=== PATIENT | male | born 2000 | race Caucasian/White ===

== ENCOUNTER 2019-10-29 07:18 | Emergency (ER) | payer BC, OTHER ==
[~2019-10-29] VITALS: Ht 188 cm; Wt 72.7 kg
[2019-10-29 07:27] VITALS: BP 112/61
[2019-10-29] MEDS ORDERED: penicillin V potassium 500mg tablet PO ONE (09:20)
[2019-10-29] MEDS ORDERED: PENI500T2 PO (09:21)
== END 2019-10-29 09:40 | disposition home or self-care (01) ==
LOC: ER 07:19
DX: J02.0 Streptococcal pharyngitis (principal); B95.0 Streptococcus, group A, as the cause of diseases classified elsewhere; M79.18 Myalgia, other site; G43.909 Migraine, unspecified, not intractable, without status migrainosus; Z79.899 Other long term (current) drug therapy
CPT/HCPCS: 87880; 99283

== ENCOUNTER 2020-12-27 15:03 | Emergency (ER) | payer BC, OTHER ==
[~2020-12-27] VITALS: Ht 190.5 cm; Wt 75.0 kg
[2020-12-27 15:17] VITALS: BP 123/59
== END 2020-12-27 15:55 | disposition home or self-care (01) ==
LOC: ER 15:04
DX: S93.401A Sprain of unspecified ligament of right ankle, initial encounter (principal); M79.671 Pain in right foot; M25.471 Effusion, right ankle; G43.909 Migraine, unspecified, not intractable, without status migrainosus; X58.XXXA Exposure to other specified factors, initial encounter; Y93.89 Activity, other specified; Y92.89 Other specified places as the place of occurrence of the external cause; Y99.8 Other external cause status
CPT/HCPCS: 73610; 73630; 99284